=== PATIENT | male | born 2000 | race Caucasian/White ===

== ENCOUNTER 2023-01-20 23:28 | Outpatient (CLI) | payer OTHER | END 2023-01-20 23:59 | disposition EMS.NT | LOC: EMS 23:28 | DX: Z03.89 Encounter for observation for other suspected diseases and conditions ruled out (principal) ==

== ENCOUNTER 2023-04-10 12:28 | Outpatient (CLI) | payer OTHER ==
--- NOTE | 2023-04-10 15:28 | XRAY Report ---
PROCEDURE: Shoulder 3 View LT INDICATIONS: PAIN IN LEFT SHOULDER TECHNIQUE: 3 views of the shoulder were acquired. COMPARISON: None. FINDINGS: Bones: No fractures or dislocations. Acromioclavicular and coracoclavicular intervals are congruent. No suspicious bony lesions. Visualized ribs appear intact. Soft tissues: No suspicious soft tissue calcifications. The visualized lungs are within normal limi ts. Visualized left lung is clear. No soft tissue swelling or radiopaque foreign body. IMPRESSION: No acute bony abnormality. Reviewed by: Winnie Mcmanus MD on 04/10/2023 3:27 PM PDT Approved by: Winnie Mcmanus MD on 04/10/2023 3:27 PM PDT Station ID: [id number]
== END 2023-04-10 12:29 | disposition home or self-care (01) ==
LOC: DI 12:28
PROVIDERS: ATTEND Nurse Practitioner
DX: M25.512 Pain in left shoulder (principal)

== ENCOUNTER 2023-11-17 16:04 | Emergency (ER) | payer OTHER ==
[2023-11-17 16:26] LABS: BASOPHILS % (AUTO) 0.4 %; EOSINOPHILS # (AUTO) 0.1 10^3/uL (0.0-0.7); EOSINOPHILS % (AUTO) 1.1 %; HCT - HEMATOCRIT 48.1 % (42.0-52.0); HGB - HEMOGLOBIN 16.7 g/dL (14.0-18.0); LYMPHOCYTES # (AUTO) 2.7 10^3/uL (1.5-3.5); LYMPHOCYTES % (AUTO) 33.1 %; MEAN CORPUSCULAR HEMOGLOBIN 30.8 pg (27.0-31.0); MEAN CORPUSCULAR HGB CONC 34.7 g/dL (32.0-36.0); MEAN CORPUSCULAR VOLUME 88.7 fL (80.0-94.0); MEAN PLATELET VOLUME 10.5 fL (7.4-11.4); MONOCYTES # (AUTO) 0.6 10^3/uL (0.0-1.0); MONOCYTES % (AUTO) 7.6 %; NEUTROPHILS # (AUTO) 4.7 10^3/uL (1.5-6.6); NEUTROPHILS % (AUTO) 57.6 %; PLT - PLATELET COUNT 275 10^3/uL (130-450); RED BLOOD COUNT 5.42 10^6/uL (4.70-6.10); RED CELL DISTRIBUTION WIDTH 11.8 % (12.0-15.0); WHITE BLOOD COUNT 8.1 x10^3/uL (4.8-10.8)
[2023-11-17 16:34] LABS: MAGNESIUM 1.7 mg/dL (1.7-2.3)
[2023-11-17 16:40] LABS: ACETAMINOPHEN 0.1 ug/mL; ALBUMIN 4.9 g/dL (3.2-5.5); ALBUMIN/GLOBULIN RATIO 1.5 (1.0-2.2); ALKALINE PHOSPHATASE 68 IU/L (42-121); ALT ALANINE AMINOTRANSFERASE 37 IU/L (10-60); AST ASPARTATE AMINOTRANSFERASE 51 IU/L (10-42); BILIRUBIN,TOTAL 0.6 mg/dL (0.2-1.0); BUN - BLOOD UREA NITROGEN 14 mg/dL (6-20); CALCIUM 10.1 mg/dL (8.5-10.3); CARBON DIOXIDE - CO2 28 mmol/L (21-32); CHLORIDE 103 mmol/L (101-111); CREATININE 1.2 mg/dL (0.6-1.3); ETOH - ETHANOL < 10.0 mg/dL; GFR - MDRD 74 (>89); GLUCOSE 84 mg/dL (74-104); LIPASE 19 U/L (11-82); POTASSIUM 3.7 mmol/L (3.5-4.5); SODIUM 138 mmol/L (135-145); TOTAL PROTEIN 8.1 g/dL (6.4-8.9)
[2023-11-17 16:43] LABS: BILIRUBIN,URINE NEGATIVE (NEGATIVE); GLUCOSE, URINE (UA) NEGATIVE (NEGATIVE); KETONES,URINE (UA) NEGATIVE (NEGATIVE); LEUKOCYTE ESTERASE, URINE NEGATIVE (NEGATIVE); NITRITE,URINE NEGATIVE (NEGATIVE); OCCULT BLOOD,URINE NEGATIVE (NEGATIVE); PROTEIN,URINE NEGATIVE (NEGATIVE); UROBILINOGEN,URINE 0.2 (NORMAL) E.U./dL (NORMAL)
[2023-11-17 16:44] LABS: CLARITY,URINE CLEAR (CLEAR)
[2023-11-17 16:56] LABS: AMPHETAMINE SCREEN,URINE NEGATIVE (NEGATIVE); BARBITURATE SCREEN,UR NEGATIVE (NEGATIVE); BENZODIAZEPINES SCREEN, URINE NEGATIVE (NEGATIVE); BUPRENORPHINE SCREEN, URINE NEGATIVE (NEGATIVE); COCAINE SCREEN URINE NEGATIVE (NEGATIVE); METHADONE SCREEN, URINE NEGATIVE (NEGATIVE); METHAMPHETAMINES SCREEN, URINE NEGATIVE (NEGATIVE); OPIATE SCREEN, URINE NEGATIVE (NEGATIVE); OXYCODONE SCREEN, URINE NEGATIVE (NEGATIVE); THC CANNABINOID SCREEN, URINE NEGATIVE (NEGATIVE); TRICYCLIC ANTIDEPRESSANT,URINE NEGATIVE (NEGATIVE)
[2023-11-17 17:06] LABS: CK- CREATINE KINASE 1302 IU/L (30-223)
[2023-11-17 17:07] LABS: SALICYLATE < 1.5 mg/dL
--- NOTE | 2023-11-17 17:19 | ED Physician Documentation ---
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 He states has been ongoing for several months. He has had legal troubles with a DUI. He states that he is being dishonorably discharged from the [employer]. He states that he is facing fines up to $100,000. He does drink alcohol. Denies any drug use. States last hospital stay for psych was 2 years ago. Patient is from [facility]. He lives in the [facility]. Patient sees a counselor at the [employer] [facility], told him about the suicidal ideation was sent here for evaluation. Review of Systems Constitutional: denies: Fever, Chills GI: denies: Vomiting Neurologic: denies: Headache PD PAST MEDICAL HISTORY - Past Medical History Past Medical History: Yes Psych: Depression - Present Medications Home Medications: Ambulatory Orders Medication Instructions Recorded Confirmed Escitalopram [Lexapro] 10 mg PO DAILY #14 tablet 11/17/23 hydrOXYzine PAMOATE [Vistaril] 25 mg PO Q8H PRN #20 cap 11/17/23 - Allergies Allergies/Adverse Reactions: Allergies Allergy/AdvReac Type Severity Reaction Status Date / Time No Known Drug Allergies Allergy Verified 11/17/23 16:24 - Social History Does the pt smoke?: No Smoking Status: Never smoker Does the pt drink ETOH?: No Does the pt have substance abuse?: No - Immunizations Immunizations are current?: Yes - POLST Patient has POLST: No PD ED PE NORMAL - Vitals Vital signs reviewed: Yes - General General: Alert and oriented X 3, No acute distress - HEENT HEENT: Moist mucous membranes - Neck Neck: Supple, no meningeal sign - Cardiac Cardiac: RRR, Strong equal pulses - Respiratory Respiratory: No respiratory distress, Clear bilaterally - Abdomen Abdomen: Soft, Non tender, Non distended - Derm Derm: Warm and dry - Neuro Neuro: Alert and oriented X 3 - Psych Psych: Other (Flat affect) Results - Vitals Vitals: Vital Signs - 24 hr 11/17/23 11/17/23 16:10 20:33 Temperature 36.7 C Heart Rate 67 64 Respiratory 19 16 Rate Blood Pressure 140/88 H 129/90 H O2 Saturation 100 97 Oxygen O2 Source Room air - EKG (time done) 1636 EKG releavant findings:: EKG personally interpreted by author of this note. Relevant findings are: Rate: Rate (enter#) (74) Rhythm: NSR Somis: Normal Intervals: Normal NV QRS: Normal Ischemia: Normal ST segments - Labs Labs: Laboratory Tests 11/17/23 11/17/23 11/17/23 16:20 16:23 16:23 WBC 8.1 RBC 5.42 Hgb 16.7 Hct 48.1 MCV 88.7 MCH 30.8 MCHC 34.7 RDW 11.8 L Plt Count 275 MPV 10.5 Neut # (Auto) 4.7 Lymph # (Auto) 2.7 Klamath # (Auto) 0.6 Eos # (Auto) 0.1 Baso # (Auto) 0.0 Absolute Nucleated RBC 0.00 Nucleated RBC % 0.0 Sodium 138 Potassium 3.7 Chloride 103 Carbon Dioxide 28 Anion Gap 7.0 BUN 14 Creatinine 1.2 Estimated GFR (MDRD) 74 L Glucose 84 Calcium 10.1 Magnesium 1.7 Total Bilirubin 0.6 AST 51 H ALT 37 Alkaline Phosphatase 68 Total Creatine Kinase 1302 H* Total Protein 8.1 Albumin 4.9 Globulin 3.2 Albumin/Globulin Ratio 1.5 Lipase 19 TSH 5.50 Urine Color YELLOW Urine Clarity CLEAR Urine pH 6.0 Ur Specific Melrose 1.025 Urine Protein NEGATIVE Urine Glucose (UA) NEGATIVE Urine Ketones NEGATIVE Urine Occult Blood NEGATIVE Urine Nitrite NEGATIVE Urine Bilirubin NEGATIVE Urine Urobilinogen 0.2 (NORMAL) Ur Leukocyte Esterase NEGATIVE Ur Microscopic Review NOT INDICATED Urine Culture Comments NOT INDICATED Salicylates < 1.5 Urine Opiates Screen NEGATIVE Ur Buprenorphine Scrn NEGATIVE Ur Oxycodone Screen NEGATIVE Urine Methadone Screen NEGATIVE Acetaminophen 0.1 Ur Barbiturates Screen NEGATIVE Ur Tricyclics Screen NEGATIVE Ur Phencyclidine Scrn NEGATIVE Ur Amphetamine Screen NEGATIVE U Methamphetamines Scrn NEGATIVE U Benzodiazepines Scrn NEGATIVE Urine Cocaine Screen NEGATIVE U Cannabinoids Screen NEGATIVE Ur Drug Screen Comment CUTOFF CONC BELOW: Ethyl Alcohol < 10.0 SARS-CoV-2 (PCR) 11/17/23 16:25 WBC RBC Hgb Hct MCV MCH MCHC RDW Plt Count MPV Neut # (Auto) Lymph # (Auto) Klamath # (Auto) Eos # (Auto) Baso # (Auto) Absolute Nucleated RBC Nucleated RBC % Sodium Potassium Chloride Carbon Dioxide Anion Gap BUN Creatinine Estimated GFR (MDRD) Glucose Calcium Magnesium Total Bilirubin AST ALT Alkaline Phosphatase Total Creatine Kinase Total Protein Albumin Globulin Albumin/Globulin Ratio Lipase TSH Urine Color Urine Clarity Urine pH Ur Specific Melrose Urine Protein Urine Glucose (UA) Urine Ketones Urine Occult Blood Urine Nitrite Urine Bilirubin Urine Urobilinogen Ur Leukocyte Esterase Ur Microscopic Review Urine Culture Comments Salicylates Urine Opiates Screen Ur Buprenorphine Scrn Ur Oxycodone Screen Urine Methadone Screen Acetaminophen Ur Barbiturates Screen Ur Tricyclics Screen Ur Phencyclidine Scrn Ur Amphetamine Screen U Methamphetamines Scrn U Benzodiazepines Scrn Urine Cocaine Screen U Cannabinoids Screen Ur Drug Screen Comment Ethyl Alcohol SARS-CoV-2 (PCR) NOT DETECTED PD Medical Decision Making - ED course Complexity details: reviewed results, re-evaluated patient, considered differential, d/w patient ED course: No significant lab abnormalities other than a mildly elevated CK level. No renal abnormalities. Given 2 L of IV fluid. Medically clear for psychiatric care. Telepsychiatry consulted. Patient was seen by telepsychiatry. They did not feel that he is in acute danger to himself.Patient is able to contract for safety with them and with me. He does stay in the [facility] and will be monitored by his command. Patient would like to be started on medication, therefore hydroxyzine and escitalopram were given via prescription. [place] He will also follow-up with [facility] tomorrow. Patient counseled regarding signs and symptoms for which I believe and urgent re-evaluation would be necessary. Patient with good understanding of and agreement to plan and is comfortable going home at this time This document was made in part using voice recognition software. While efforts are made to proofread this document, sound alike and grammatical errors may occur. Departure - Departure Disposition: 01 Home, Self Care Clinical Impression: Elevated CK Depression Qualifiers: Depression Type: unspecified Qualified Code(s): F32.A - Depression, unspecified Condition: Good Instructions: ED Depression Follow-Up: LEILANI GUTIERREZ ARNP [Primary Care Provider] - Tomorrow Prescriptions: Escitalopram [Lexapro] 10 mg PO DAILY #14 tablet hydrOXYzine PAMOATE [Vistaril] 25 mg PO Q8H PRN #20 cap PRN Reason: Anxiety Comments: Your prescriptions were sent to the [facility] pharmacy. Please follow-up with your primary care provider tomorrow. You are seen by the telepsychiatrist inga. You have contracted for safety. If you are having any thoughts that you do not want to live, thoughts of hurting yourself, or thoughts of hurting anyone else, please call 911, the crisis line at [phone], or go to your nearest emergency department. Crisis Line and is available to talk to someone [email or web address] is also available to chat with someone online if you prefer. There are also many resources on this website and apps for your phone to help with your mental health You can also text the word START to 526-170-6826 to chat with someome via text. You need to follow-up closely with your counselor and behavioral health [place]. Forms: PCP List Discharge Date/Time: 11/17/23 20:33
[2023-11-17] MEDS: SODIUM CHLORIDE 0.9% 2,000 ML IV STA (17:29)
--- NOTE | 2023-11-17 18:08 | TELEPSYCH PHYS NOTE ---
[facility] Telepsych Consult Consult Date: 11/17/23 Name of Referring Provider:: ED provider Reason for Consult: suicidal ideation - Assessment Language: Bhutanese Cultural, Confucianist or Spiritual Preferences: none identified Notes: per ED notes- patient referred to ED due to increased depressive symptoms with suicidal ideation History of Present Illness: 23 yr old male presents to the ED due to increased depressive symptoms with suicidal ideation. Patient is currently in the [facility] and reportedly is facing being dishonorably discharged. - Medication & Allergies Home Medications: Ambulatory Orders Medication Instructions Recorded Confirmed No Known Home Medications 11/17/23 11/17/23 Allergies/Adverse Reactions: Allergies Allergy/AdvReac Type Severity Reaction Status Date / Time No Known Drug Allergies Allergy Verified 11/17/23 16:24 - Medical History Psychiatric: reports: Depression
--- NOTE | 2023-11-17 19:09 | TELEPSYCH PHYS NOTE ---
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 Patient reports he is possibly being dishonorably discharged from the [employer] and has been feeling more anxious and depressed. Patient reports he had a DUI last month and since that time things have become increasingly [place] and [place]. He states he is putting in 14 days and is possibly facing up to $100,000 in fines. Patient states he does not feel supported or that he has any support from the [employer]. Patient denies SI and states that his thoughts are more "passive". He does not have a plan. He denies HI and thoughts of self-harm. He reports he has taken fluoxetine in the past but states that did not help with his anxiety. He is currently on a waiting [place] Patient states he went to his required alcohol class today and had to answer questions regarding SI and he marked that he had been having some SI with no plan and the counselor recommended he go to the ED for further evaluation. Patient continues to deny SI throughout assessment. Suicide Ideation - Homicide Ideation - Self Harm: denies SI and HI Psychiatric History - Treatment History: denies Community Resources Accessed: ED Family Psych History/ History of suicide: denies Nutritional Status: Decrease in food intake and/or appetite - Medication & Allergies Home Medications: Ambulatory Orders Medication Instructions Recorded Confirmed No Known Home Medications 11/17/23 11/17/23 Allergies/Adverse Reactions: Allergies Allergy/AdvReac Type Severity Reaction Status Date / Time No Known Drug Allergies Allergy Verified 11/17/23 16:24 - Drug & Alcohol History Does patient have Drug/ETOH history or addictive behavior?: Yes Use: Uses substance without health or social issues: Alcohol Abuse: Recurrent use of substance despite neg consequences: NONE Dependence: Experiences withdrawal or developed tolerances: NONE - Trauma Does the patient have a history of trauma, abuse, neglect or explotation?: No - Personal Information Does the patient have a history or present tendencies for violence?: None 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 [employer] Does patient have any Legal Charges or Investigations?: Yes Legal Charges or Investigations (Notes): DUI Environment & Living Situation - Social, Peer-Group (Note): Other (Currently lives on [employer] [place]) Marital Status - Family Circumstances: single Stressors - Financial Concerns: "recent DUI, the [facility], my situation" 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: Active 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 [employer] Collateral - Interdisciplinary Input: ED records and ED provider Dr Jacob - Medical History Psychiatric: reports: Depression, Anxiety - Mental Status Exam Appearance and Attire: hospital attire, appears stated age Attitude and Behavior: calm, cooperative Speech: fluent Affect and Mood: mood - anxious affect - congruent Association and Thought Process: linear, goal-directed Thought Content: denies SI,HI Perception: denies AH/VH Sensorium, memory and orientation: alert, oriented Intellectual - Cognitive functioning: average Insight and Judgement: insight - fair; judgement - fair Emotional and Behavioral Functioning: no agitation Ability to Self-Care: age appropriate - Personal Goals Short-term Goals: "take care of what's going on" - Risk/Protective Factors Risk Factors: Trigger events leading to humiliation, shame and/or despair, Legal problems Protective Factors / Internal: Identifies reasons for living Protective Factors / External: Positive therapeutic relationships, Engaged in work or school - Plan Impression/Risk Assessment: 23 y/o male presents to ED for passive thoughts of suicide. Patient has been under extreme stress and has been feeling more anxious. Patient has hx of anxiety and has had a recent DUI. Patient is currently in the [employer] active duty and is concerned about possible dishonorable discharge. He feels he has limited support at this time. He denies SI, HI and thoughts of self-harm. He states he does not feel he needs to be placed inpatient but rather needs something to help control his anxiety and near panic. Patient states he does not feel he is a risk to himself. Recommend outpatient level of care. Treatment - Therapy Recommendations: Outpatient - recommend mental health counseling and outpatient medication management. Please add to discharge paperwork: If you are having any thoughts you do not want to live, thoughts of hurting yourself, or thoughts of hurting anyone else, please call 911, the crisis line at [phone], or go to your nearest Emergency Department. Pharmacological Recommendations: Recommend escitalopram 10 mg, one table, PO every evening. Recommend hydroxyzine 50 mg, one tablet, PO three times daily as needed for anxiety - Problem List (2) Major depressive disorder Qualifiers: Major depression recurrence: single episode Active/Remission status: currently active Major depression episode severity: moderate Qualified Code(s): F32.1 - Major depressive disorder, single episode, moderate - Time Spent & Provider Location Telepsych consultation conducted via videoconferencing: Yes List names and roles of persons who participated in consult: Rodrick Cobian, patient. Jaimie Plata APRN, [facility]- Telepsych Provider Location: remote location Time Spent (Minutes): 75
[2023-11-17 20:38] VITALS: BP 129/90; O2SAT 97
== END 2023-11-17 20:33 | disposition home or self-care (01) ==
LOC: EDUNIT# → ED 16:04
DX: F32.A Depression, unspecified (principal); R45.851 Suicidal ideations; R94.4 Abnormal results of kidney function studies
CPT/HCPCS: 36415; 80053; 80143; 80179; 80306; 81003; 82077; 82550; 83690; 83735; 84443; 85025; 87635; 93005; 96360; 96361; 99284; G0427; Q3014; 81001; 87086

== ENCOUNTER 2024-01-05 13:46 | Outpatient (CLI) | payer OTHER ==
--- NOTE | 2024-01-06 08:21 | SLEEP CARE CONSULTATION ---
Information from patient questionnaire entered by Herminio Marr. I have reviewed and concur with the information entered by Herminio Marr. This document represents the service I personally performed and the decisions made by me, Bunny Rios MD, [facility]. History of Present Illness Service Date and Time: 01/05/2024 1346 Reason for Visit: New patient Chief Complaint: reports: Insomnia, Unrefreshed sleep, Excessive daytime sleepiness, Fatigue, Frequent awakenings at night Date of Onset: 4-5YRS Usual bedtime: 6713-1906 Time it takes to fall asleep: 1-4 Observed to quit breathing while asleep: No Number of times waking at night: 2 Reasons for waking at night: reports: Other (UNKNOWN) Recalls having dreams: Yes Usually gets out of bed at: 0580-6506 Feels refreshed in the morning: No Morning headache: Yes Sleepy or fatigued during the day: Yes Ever fallen asleep while driving: No Takes day naps: No Dreams during day naps: No Prior sleep studies: No Additional HPI information: I had the pleasure of seeing Mr. Cobian today regarding the possibility of him having a sleep disorder. As you know, he is a 23-year-old gentleman who complains of insomnia, frequent awakenings, unrefreshed sleep, persistent fatigue, and excessive daytime sleepiness for the past 4 5 years. The patient tells me that he normally goes to bed around 8 - 10 pm, and it takes him approximately 1 4 hours to fall asleep. He has not been told that he snores loudly or irregularly at night. He has never been observed to stop breathing in his sleep. However, he sleeps alone. He can recall waking up on the average of 2 times during the night. Most of the time he wakes up because of unknown reason. He has awakened occasionally because of his own snoring, choking, and having to gasp for air. There is not a lot of tossing and turning in his sleep. No somniloquy (sleep talking) or somnambulism (sleep walking). Generally, he can recall having dreams. In the morning he usually gets up out of the bed around 5 - 6 a.m. not feeling refreshed nor rested. He usually has a morning headache which can last all day. During the day he complains of feeling sleepy and fatigued. His score on Dover Sleepiness Scale is 8 out of 24. He never has fallen asleep while driving nor has had any accident due to sleepiness. He usually does not take naps during the day. He reports having impaired concentration during the day. 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 Patient is Single and lives in . Have you smoked in the past 12 months: No Alcohol use: No Caffeine use: Yes Caffeine amount and frequency: ON OCCASSIONS Allergies and Home Medications Known drug allergies: No Drug allergies reviewed: Yes Home medication list reviewed: Yes Allergy and home medication list: Allergies No Known Drug Allergies Allergy (Verified 12/30/23 08:14) Review of Systems Weight gain over past 5 years: 30 Weight loss over past 5 years: 10 Cardiovascular: denies: high blood pressure, palpitations, chest pain, irregular heart rate or pulse, leg or foot swelling, have to sleep sitting up, other Respiratory: denies: shortness of breath, wheeze, sputum production, chronic cough, other Gastrointestinal: denies: heartburn, difficulty swallowing, nausea, vomitting, diarrhea, abdominal pain, other Urinary: denies: incontinence, frequency, urgency, impotence, other Neurological: reports: headaches, head trauma, gait or balance problems Psychiatric: reports: anxiety, depression Ear/Nose/Throat: reports: nasal congestion, sinus problems, nose bleeds, dry mouth/throat, injury to nose, wisdom teeth removed Musculoskeletal: reports: mobility problems Immunologic: denies: sneezing, rash, itching, allergies to food or environment, other Physical Exam Vital signs obtained and entered by: HERMINIO Sanchez MA Blood Pressure: 128/86 (RIGHT ARM) Cuff size: regular Heart Rate: 68 O2 Saturation: 97 Height: 5 ft 9 in Weight: 191 lb 9.6 oz Body Mass Index: 28.3 BMI Classification: Overweight Neck circumference: 15 Mood/affect: Normal HEENT: No craniofacial malformation Nostrils: partially obstructed Turbinates: normal Septum: midline Mouth and throat: narrow oropharynx Soft palate: long Hard palate: normal Uvula: normal Uvula visualization: 25% Mallampati Class III Tongue: enlarged in size with teeth nava on lateral edges Tonsils: small Chin and jaw: normal size and position Neck: normal w/o lymphadenopathy or thyromegaly Heart: regular rate and rhythm Lungs: clear bilaterally Extremities: no edema or clubbing Neurologic: intact Impression and Plan IMPRESSION: 1. Insomnia, involving the sleep onset. The patient reports taking 1 4 hours to fall asleep. His depression probably plays a role as seen in his going to bed very early at 8 pm (assuming the normal sleep requirement of 8 hours a night, he should not be in bed until 10 pm at the earliest). Sleep disrupting conditions should be ruled out. Narrow oropharynx and obesity are common predisposing factors for obstructive sleep apnea-hypopnea syndrome. I recommend proceeding to polysomnography to confirm the diagnosis and to assess severity. I informed the patient of what the sleep studies involve and after some discussion, he agreed to proceed. Plan: 1. Schedule an in-laboratory polysomnography and return in 1 to 2 weeks after the study to discuss result and initiate therapy. 2. Do not go to bed earlier than 10 pm and maintain a regular wakeup time at 6 am. Follow up with Sleep Care in: 1-2 months Visit Type: In Office Time Spent with Patient (minutes): 15 Provider Statement: I spent 100% of the Face to Face Visit with the patient with greater than 50% spent counseling the patient and coordination of care.
[2024-01-06 08:28] VITALS: BP 128/86; O2SAT 97
== END 2024-01-05 13:47 | disposition home or self-care (01) ==
LOC: SC 13:46
PROVIDERS: ATTEND Internal Medicine Pulmonary Disease
DX: G47.00 Insomnia, unspecified (principal); G47.8 Other sleep disorders; G47.10 Hypersomnia, unspecified; R53.83 Other fatigue; R51.9 Headache, unspecified; R41.89 Other symptoms and signs involving cognitive functions and awareness; F32.A Depression, unspecified; E66.3 Overweight; Z68.28 Body mass index [BMI] 28.0-28.9, adult
CPT/HCPCS: 99202; 99212

== ENCOUNTER 2024-01-27 19:05 | Outpatient (CLI) | payer OTHER | END 2024-01-27 19:06 | disposition home or self-care (01) | LOC: SC 19:05 | PROVIDERS: ATTEND Internal Medicine Pulmonary Disease | DX: G47.00 Insomnia, unspecified (principal); G47.10 Hypersomnia, unspecified; R53.83 Other fatigue; R51.9 Headache, unspecified; R41.89 Other symptoms and signs involving cognitive functions and awareness; E66.3 Overweight; G47.50 Parasomnia, unspecified; G47.8 Other sleep disorders; F32.A Depression, unspecified | CPT/HCPCS: 95810 ==

== ENCOUNTER 2024-02-18 10:31 | Outpatient (CLI) | payer OTHER ==
--- NOTE | 2024-02-18 10:04 | SLEEP CARE CONSULTATION ---
Information from patient questionnaire entered by Ameena Marr. I have reviewed and concur with the information entered by Ameena Marr. This document represents the service I personally performed and the decisions made by , Klaudia Wilhelm ARNP. History of Present Illness Service Date and Time: 02/18/2024 1000 Initial [place] Sleepiness Scale score: 8 (01/05/24) Current [place] Sleepiness Scale score: 3 (02/18/24) Additional HPI information: CONNER BUSH returns via video appointment for follow up and results of the recently performed polysomnography done on 01/27/24. The patient was informed of the following findings: No significant sleep disordered breathing with an average AHI of 2.1 and dell oxygen saturation of 89%. I explained the pathophysiology behind obstructive sleep apnea. Patient does not have sleep apnea and was advised how weight gain could increase the risk of developing sleep apnea in the future. I strongly encouraged the patient to lose weight. Patient has light snoring. Snoring can be reduced by weight loss. Weight loss is best achieved with diet consult. Patient instructed to contact PCP for referral. Snoring can also be treated with an oral appliance from a dentist. Advised to check insurance coverage. In addition, an ENT evaluation can be do to see if other treatment is indicated. Patient does not drink alcohol. Patient was cautioned about risks of drowsy driving until sleepiness symptoms resolve. Patient denies drowsy driving. Sleep Study - Results Type of Sleep Study: Polysomnography (COMPLETED 01/27/24) Prior sleep studies: No Polysomnography/Home Sleep Study results: IMPRESSION: The quality of the study is good. The patient had slightly reduced sleep efficiency due to a prolonged awakening in the middle of the night. The sleep architecture was normal. Respiratory monitoring showed no significant sleep disordered breathing (AHI = 2.1) or hypoxia (dell oxygen saturation of 89%). The patient slept mostly supine (supine AHI = 3.1; non-supine = 0.41). Snore was light in intensity. There was no significant periodic leg movement of sleep. Cardiac rhythm was normal sinus rhythm without significant arrhythmia. No abnormal behavior (parasomnia) observed during the night. Allergies and Home Medications Known drug allergies: No Drug allergies reviewed: Yes Home medication list reviewed: Yes (no changes) Allergy and home medication list: Allergies No Known Drug Allergies Allergy (Verified 02/18/24 09:46) Review of Systems Review of systems same as previous: Yes (NO CHANGE) Physical Exam Vital signs obtained and entered by: AMEENA Sanchez MA Height: 5 ft 9 in (PER PT) Weight: 185 lb (PER PT) Body Mass Index: 27.3 BMI Classification: Overweight Impression and Plan 1. Snoring, mild, but no significant sleep disordered breathing. Patient advised that often weight loss will reduce snoring as well as apnea risk. An oral appliance can also be used for snoring. This would require a dental consultation. Patient cautioned not to use other online appliances as can cause bite issues. Patient is advised to check if insurance will cover. An ENT consult can also be helpful to determine if any other treatment is an option. 2. Insomnia is generally caused by an irregular sleep schedule, spending too much time in bed, napping, caffiene, electronics, lack of a relaxing bedtime ritual and clock watching. Other factors can include anxiety/depression, pain, medications, and obstructive sleep apnea. First I counseled the patient on the importance of a regular sleep schedule, starting with the wake time. I explained the homestatic sleep drive and how maintaining a regular wake time will allow the patient to be tired enough to sleep 15-16 hours later. By waking at the same time, the patient will also feel more alert. Naps are to be avoided unless overcome by sleepiness. He voiced understanding. He is getting out of the [place] and will be moving. He will establish with a provider if he needs more follow up for his insomnia. 3. Overweight, unspecified. Currently patients BMI is 27.3. Obesity increases the risk of apnea, CPAP pressure requirements and overall health risks especially cardiovascular and diabetes. Thus patient is advised to lose weight. * Attempt to lose weight * The patient is cautioned about driving until sleepiness is completely resolved. * Return as needed for follow up. Counseling Topics: Weight loss health impact Follow up with Sleep Care in: as needed Visit Type: Telehealth Video Video Type: [employer] Patient Location: Home Location of Provider: Office Patient agrees and consents to this telehealth visit type: Yes Time Spent with Patient (minutes): 18 Provider Statement: I spent 100% of the Telehealth Video Call with the patient with greater than 50% spent counseling the patient and coordination of care.
== END 2024-02-18 10:32 | disposition home or self-care (01) ==
LOC: SC 10:31
PROVIDERS: ATTEND Nurse Practitioner Family
DX: R06.83 Snoring (principal); G47.00 Insomnia, unspecified; E66.3 Overweight; Z68.27 Body mass index [BMI] 27.0-27.9, adult